=== PATIENT | female | born 1990 | race Two or more races ===

== ENCOUNTER 2016-09-05 20:16 | Emergency (ER) | payer MEDICAID ==
[2016-09-05] MEDS ORDERED: MAALOX/LIDO2%VISC/SIMETHICONE 40 ML BOT ONE (20:40)
[2016-09-05] MEDS ORDERED: SODIUM CHLORIDE 0.9% 1,000 ML ONE (21:11)
[2016-09-05] MEDS ORDERED: KETOROLAC TROMETHAMINE 15 MG/ML VIAL ONE (21:11)
[2016-09-05 21:33] LABS: ABSOLUTE NEUTROPHIL COUNT 5.3 K/mm3 (1.8-7.7); BASO % 0.4 % (0.2-1.0); EOS # 0.1 (0.0-0.5); EOS % 1.3 % (0.9-2.9); HEMATOCRIT 41.9 % (37.0-47.0); IMM NEUT% 0.2 % (0-1); LYMPH # 3.4 (1.0-4.8); LYMPH % 36.3 % (15-45); MEAN CELL VOLUME 89.1 fl (81.0-99.0); MEAN CORPUSCULAR HEMOGLOBIN 29.8 pg (27.0-31.0); MEAN CORPUSCULAR HGB CONC 33.4 g/dl (33.0-37.0); MEAN PLATELET VOLUME 10.1 fl (7.4-10.4); MONO # 0.6 (0.0-0.8); NEUT % 55.8 % (43-75); PLATELET COUNT 320 K/mm3 (130-400); RED CELL DISTRIBUTION WIDTH 11.9 % (11.5-14.5)
[2016-09-05 21:34] LABS: PH,URINE 6.5 (5.0-8.0); SPECIFIC GRAVITY 1.015 (1.001-1.030); URINE BILIRUBIN NEGATIVE (NEGATIVE); URINE BLOOD NEGATIVE (NEGATIVE); URINE GLUCOSE (UA) NEGATIVE (NEGATIVE); URINE LEUKOCYTE ESTERASE TRACE (NEGATIVE); URINE NITRITE NEGATIVE (NEGATIVE); URINE PROTEIN NEGATIVE (NEGATIVE); URINE UROBILINOGEN NORMAL (0-1 mg/dl)
[2016-09-05 21:37] LABS: HCG,QUALITATIVE URINE NEGATIVE; URINE APPEARANCE CLEAR; URINE COLOR YELLOW
[2016-09-05 21:40] LABS: ALB/GLOB RATIO 1.4 (>1.0); CALCIUM 10.3 mg/dL (8.6-10.3)
[2016-09-05 21:41] LABS: URINE BACTERIA RARE; URINE EPITHELIAL CELLS 0-2 /hpf; URINE RBC 0 /hpf; URINE WBC 0-2 /hpf
--- NOTE | 2016-09-06 07:15 | US ---
Exam: Gallbladder ultrasound COMPARISON: None INDICATION: Epigastric pain for 2 hours. FINDINGS: Gallbladder ultrasound was obtained. The gallbladder is normal without stones, sludge or wall thickening. There was a negative sonographic Power's sign, although patient was patient medicated prior to the exam. Common bile duct normal at 2 mm. IMPRESSION: Negative gallbladder ultrasound. Preliminary report transmitted to the emergency department from [facility] at 2202 hours 09/05/2016.
== END 2016-09-05 22:22 | disposition home or self-care (01) ==
LOC: ED 20:16
DX: R10.9 Unspecified abdominal pain (principal); K21.9 Gastro-esophageal reflux disease without esophagitis
CPT/HCPCS: 83690; 81025; 85025; 87086; 80053; 81001; 76705; 99284 ×2; 96374; 96361; A9270; J1885; J7030